=== PATIENT | female | born 1945 | race American Indian/Alaskan Native ===

== ENCOUNTER 2017-03-02 07:22 | Emergency (ER) | payer MEDICARE ==
--- NOTE | 2017-03-02 08:19 | XRay Report ---
PA and lateral chest: Chest pain. Lungs are hypoventilated. No pulmonary infiltrates nor other opacities. The heart is probably normal in size for degree of inspiration although the aorta is somewhat tortuous. No interval change compared to November 09, 2015. Impression: Suboptimal inspiration. No acute findings.
[2017-03-02 08:36] LABS: Basophils % (Auto) 0.3 % (0.0-1.8); Eosinophils % (Auto) 3.2 % (0.0-4.3); Hematocrit 31.6 % (30.3-42.9); Hemoglobin 10.2 gm/dl (10.1-14.3); Mean Corpuscular HGB Conc 32 % (30-34); Mean Corpuscular Volume 74 fl (79-97); Platelet Count 231 K/mm3 (140-440); Red Blood Count 4.27 M/mm3 (3.65-5.03); Red Cell Distribution Width 16.2 % (13.2-15.2); White Blood Count 9.2 K/mm3 (4.5-11.0)
[2017-03-02 08:38] LABS: Mean Corpuscular Hemoglobin 24 pg (28-32)
[2017-03-02 09:00] LABS: Anion Gap 15 mmol/L; BUN/Creatinine Ratio 11; Blood Urea Nitrogen 8 mg/dL (7-17); Calcium 8.6 mg/dL (8.4-10.2); Carbon Dioxide 27 mmol/L (22-30); Chloride 108.3 mmol/L (98-107); Glucose 114 mg/dL (65-100); Sodium 146 mmol/L (137-145)
[2017-03-02] MEDS ORDERED: TYLENOL PO ONE (16:02)
[2017-03-02] MEDS ORDERED: ATROVENT IH ONE (16:03)
[2017-03-02] MEDS ORDERED: PROVENTIL IH ONE (16:03)
--- NOTE | 2017-03-02 16:03 | Emergency Department Report ---
ED Chest Pain HPI - General Chief Complaint: Chest Pain Stated Complaint: PALLAVI Time Seen by Provider: 03/02/17 15:51 Source: patient, RN notes reviewed, old records reviewed Mode of arrival: Ambulatory Limitations: No Limitations - History of Present Illness Initial Comments: This is a 71-year-old female. She is previously unknown to this provider. Has a past medical history of hypertension, diabetes, COPD, obstructive sleep apnea , reports noncompliance with CPAP machine. She presents to the ER with a complaint of cough, wheezing, shortness of breath. This has been going on since last week. She reports that she was seen at another hospital, and prescribed antibiotics; she cannot recall the name of the antibiotic. She describes tinnitus and change in auditory acuity. There is no vertigo. She does admit to mild right-sided ear discomfort. She endorses compliance with antibiotics. There is no leg pain or leg swelling, no recent trips greater than 4 hours, and no recent hospital admissions. Patient endorses that the symptoms have been going on for almost a week. The patient further endorses that approximately 4-5 days ago, she began to have left -sided chest wall pain. It is directly inferior to the breast. The pain does not radiates to the back, arms and neck, there is no vomiting or diaphoresis. There is chronic shortness of breath which is not new, worsening or different. MD Complaint: chest pain -: Gradual Onset: during rest Pain Location: left chest Pain Radiation: none Severity: moderate Quality: aching Consistency: intermittent Improves With: nothing Worsens With: nothing Context: recent illness Other Symptoms: cough Aspirin use within the Past 7 Days: (0) No - Related Data On Oral Contraceptives: No Previous Rx's Medication Instructions Recorded Last Taken Type Albuterol Sulfate [Albuterol 0.63% 0.63 mg IH TID PRN #1 ml 11/13/15 Unknown Rx NEBS] Azithromycin [Zithromax TAB] 500 mg PO QDAY #2 tablet 11/13/15 Unknown Rx Losartan [Cozaar] 25 mg PO QDAY #30 tablet 11/13/15 Unknown Rx Metoprolol [Lopressor TAB] 25 mg PO DAILY #30 tablet 11/13/15 Unknown Rx Tiotropium [Spiriva] 18 mcg IH QDAY #1 box 11/13/15 Unknown Rx Acetaminophen [Tylenol Arthritis] 650 mg PO Q6HR PRN #30 tablet.er 03/02/17 Unknown Rx Albuterol Sulfate [Proair 90 mcg IH Q4HR PRN #2 aer.pow.ba 03/02/17 Unknown Rx Respiclick] Fluticasone [Flonase] 1 spray NS QDAY #1 bottle 03/02/17 Unknown Rx Allergies Allergy/AdvReac Type Severity Reaction Status Date / Time aspirin AdvReac Rash Verified 11/09/15 14:57 iodine AdvReac Swelling Verified 11/09/15 14:57 shellfish derived AdvReac Swelling Verified 11/09/15 14:57 Sulfa (Sulfonamide AdvReac Swelling Verified 11/09/15 14:57 Antibiotics) Heart Score - HEART Score History: Slightly suspicious EKG: Normal Age: > 65 Risk factors: 1-2 risk factors Troponin: < normal limit HEART Score: 3 - Critical Actions Critical Actions: 0-3 pts:0.9-1.7%risk of adverse cardiac event.Candidate for discharge ED Review of Systems ROS: Stated complaint: PALLAVI Other details as noted in HPI Constitutional: denies: diaphoresis, fever, malaise Eyes: denies: vision change ENT: ear pain, throat pain, congestion Respiratory: cough, shortness of breath, wheezing Cardiovascular: chest pain Gastrointestinal: denies: abdominal pain Genitourinary: denies: dysuria Musculoskeletal: arthralgia, myalgia Skin: denies: rash Neurological: denies: weakness ED Past Medical Hx - Past Medical History Hx Hypertension: Yes Hx Diabetes: Yes Hx Arthritis: Yes Hx Asthma: Yes Hx COPD: Yes Hx HIV: No Additional medical history: diverticulitis. high cholesterol. sleep apnea. enlarged heart - Surgical History Hx Appendectomy: Yes Additional Surgical History: hysterectomy. left knee surgery. right eye surgery - Social History Smoking Status: Never Smoker Substance Use Type: None - Medications Home Medications: Home Medications Medication Instructions Recorded Confirmed Last Taken Type Albuterol Sulfate [Albuterol 0.63% 0.63 mg IH TID PRN #1 ml 11/13/15 Unknown Rx NEBS] Azithromycin [Zithromax TAB] 500 mg PO QDAY #2 tablet 11/13/15 Unknown Rx Losartan [Cozaar] 25 mg PO QDAY #30 tablet 11/13/15 Unknown Rx Metoprolol [Lopressor TAB] 25 mg PO DAILY #30 tablet 11/13/15 Unknown Rx Tiotropium [Spiriva] 18 mcg IH QDAY #1 box 11/13/15 Unknown Rx Acetaminophen [Tylenol Arthritis] 650 mg PO Q6HR PRN #30 tablet.er 03/02/17 Unknown Rx Albuterol Sulfate [Proair 90 mcg IH Q4HR PRN #2 aer.pow.ba 03/02/17 Unknown Rx Respiclick] Fluticasone [Flonase] 1 spray NS QDAY #1 bottle 03/02/17 Unknown Rx ED Physical Exam - General Limitations: No Limitations General appearance: alert, in no apparent distress - Head Head exam: Present: atraumatic, normocephalic - Eye Eye exam: Present: normal appearance, EOMI. Absent: nystagmus Pupils: Absent: unequal - ENT ENT exam: Present: normal exam, normal orophraynx, mucous membranes moist, TM's normal bilaterally (there is no tympanic membrane erythema or bulging. There is no mastoid tenderness), normal external ear exam, other (the patient is speaking in full sentences. There is no stridor or dysphonia.) - Neck Neck exam: Present: normal inspection, full ROM. Absent: tenderness, meningismus - Respiratory Respiratory exam: Present: normal lung sounds bilaterally, other (when the patient is examined, she closes her mouth, and has some transmitted upper airway sounds. However, when she opens her mouth widely, there is no wheezing, rales or rhonchi.). Absent: respiratory distress, wheezes, rales, rhonchi, stridor, chest wall tenderness, accessory muscle use, decreased breath sounds, prolonged expiratory - Cardiovascular Cardiovascular Exam: Present: regular rate, normal rhythm, normal heart sounds. Absent: bradycardia, tachycardia, irregular rhythm, systolic murmur, diastolic murmur, rubs, gallop - GI/Abdominal GI/Abdominal exam: Present: soft, normal bowel sounds. Absent: distended, tenderness, guarding, rebound, rigid, pulsatile mass - Extremities Exam Extremities exam: Present: normal inspection, full ROM, normal capillary refill. Absent: pedal edema, joint swelling, calf tenderness - Back Exam Back exam: Present: normal inspection, full ROM. Absent: tenderness, CVA tenderness (R), CVA tenderness (L), muscle spasm, paraspinal tenderness, vertebral tenderness - Neurological Exam Neurological exam: Present: alert, oriented X3, normal gait, other (Extraocular movements intact. Tongue midline. No facial droop. Facial sensation intact to light touch in the V1, V2, V3 distribution bilaterally. 5 and 5 strength in 4 extremities.. Sensation is intact to light touch in 4 extremities.). Absent : motor sensory deficit - Psychiatric Psychiatric exam: Present: anxious - Skin Skin exam: Present: warm, dry, intact, normal color. Absent: rash ED Course Vital Signs 03/02/17 03/02/17 03/02/17 07:31 15:36 16:01 Temperature 98 F 98.1 F Pulse Rate 64 Pulse Rate [ Bilateral] Respiratory 22 16 Rate Respiratory Rate [Bilateral ] Blood Pressure 172/87 O2 Sat by Pulse 97 95 98 Oximetry 03/02/17 03/02/17 03/02/17 16:15 16:30 16:45 Temperature Pulse Rate 57 L 58 L 66 Pulse Rate [ Bilateral] Respiratory 20 19 18 Rate Respiratory Rate [Bilateral ] Blood Pressure 194/87 180/82 180/82 O2 Sat by Pulse 95 94 92 Oximetry 03/02/17 03/02/17 03/02/17 17:01 17:02 17:22 Temperature Pulse Rate 58 L Pulse Rate [ 86 88 Bilateral] Respiratory 19 Rate Respiratory 16 16 Rate [Bilateral ] Blood Pressure 180/82 O2 Sat by Pulse 94 Oximetry - Reevaluation(s) Reevaluation #1: 03/02/17 19:48 Patient has been resting comfortably in the department for hours, no respiratory distress is noted, no hypoxia is noted. CT scan of the chest negative for pulmonary embolus, effusions noted, does not appear to be especially symptomatic. She can follow up with her outpatient massotherapist or outpatient cardiology for this. Right-sided pulmonary nodules noted, this has nonspecific significance. She will be instructed to follow up either her primary care doctor or massotherapist for the following a period the patient is specifically instructed that she needs to follow-up to exclude neoplasm. Reevaluation #2: 03/02/17 19:54 patient aware of nodule she is given copy of ct scan encouraged to follow up with Dr Kelly DOWELL score - Brayan Score Age > 65: (1) Yes Aspirin use within the Past 7 Days: (0) No 3 or more CAD Risk Factors: (0) No 2 or more Angina events in past 24 hrs: (0) No Known CAD with more than 50% Stenosis: (0) No Elevated Cardiac Markers: (0) No ST Deviation Greater than 0.5mm: (0) No BRAYAN Score: 1 ED Medical Decision Making - Lab Data Result diagrams: 03/02/17 07:48 03/02/17 07:48 Vital Signs 03/02/17 03/02/17 03/02/17 07:31 15:36 16:01 Temperature 98 F Pulse Rate 64 Pulse Rate [ Bilateral] Respiratory 22 16 Rate Respiratory Rate [Bilateral ] Blood Pressure 172/87 O2 Sat by Pulse 97 95 98 Oximetry 03/02/17 03/02/17 03/02/17 16:15 16:30 16:45 Temperature Pulse Rate 57 L 58 L 66 Pulse Rate [ Bilateral] Respiratory 20 19 18 Rate Respiratory Rate [Bilateral ] Blood Pressure 194/87 180/82 180/82 O2 Sat by Pulse 95 94 92 Oximetry 03/02/17 03/02/17 03/02/17 17:01 17:02 17:22 Temperature Pulse Rate 58 L Pulse Rate [ 86 88 Bilateral] Respiratory 19 Rate Respiratory 16 16 Rate [Bilateral ] Blood Pressure 180/82 O2 Sat by Pulse 94 Oximetry Lab Results 03/02/17 03/02/17 03/02/17 Range/Units 07:48 07:48 10:37 WBC 9.2 (4.5-11.0) K/mm3 RBC 4.27 (3.65-5.03) M/mm3 Hgb 10.2 (10.1-14.3) gm/dl Hct 31.6 (30.3-42.9) % MCV 74 L (79-97) fl MCH 24 L (28-32) pg MCHC 32 (30-34) % RDW 16.2 H (13.2-15.2) % Plt Count 231 (140-440) K/mm3 Lymph % (Auto) 20.3 (13.4-35.0) % Wythe % (Auto) 9.6 H (0.0-7.3) % Eos % (Auto) 3.2 (0.0-4.3) % Baso % (Auto) 0.3 (0.0-1.8) % Lymph # 1.9 (1.2-5.4) K/mm3 Wythe # 0.9 H (0.0-0.8) K/mm3 Eos # 0.3 (0.0-0.4) K/mm3 Baso # 0.0 (0.0-0.1) K/mm3 Seg Neutrophils % 66.6 (40.0-70.0) % Seg Neutrophils # 6.1 (1.8-7.7) K/mm3 Sodium 146 H (137-145) mmol/L Potassium 4.0 (3.6-5.0) mmol/L Chloride 108.3 H (98-107) mmol/L Carbon Dioxide 27 (22-30) mmol/L Anion Gap 15 mmol/L BUN 8 (7-17) mg/dL Creatinine 0.7 (0.7-1.2) mg/dL Estimated GFR > 60 ml/min BUN/Creatinine Ratio 11 % Glucose 114 H (65-100) mg/dL POC Glucose (70-105) Calcium 8.6 (8.4-10.2) mg/dL Troponin T < 0.010 < 0.010 (0.00-0.029) ng/mL 03/02/17 03/02/17 Range/Units 13:09 15:37 WBC (4.5-11.0) K/mm3 RBC (3.65-5.03) M/mm3 Hgb (10.1-14.3) gm/dl Hct (30.3-42.9) % MCV (79-97) fl MCH (28-32) pg MCHC (30-34) % RDW (13.2-15.2) % Plt Count (140-440) K/mm3 Lymph % (Auto) (13.4-35.0) % Wy[place] % (Auto) (0.0-7.3) % Eos % (Auto) (0.0-4.3) % Baso % (Auto) (0.0-1.8) % Lymph # (1.2-5.4) K/mm3 Wy[place] # (0.0-0.8) K/mm3 Eos # (0.0-0.4) K/mm3 Baso # (0.0-0.1) K/mm3 Seg Neutrophils % (40.0-70.0) % Seg Neutrophils # (1.8-7.7) K/mm3 Sodium (137-145) mmol/L Potassium (3.6-5.0) mmol/L Chloride (98-107) mmol/L Carbon Dioxide (22-30) mmol/L Anion Gap mmol/L BUN (7-17) mg/dL Creatinine (0.7-1.2) mg/dL Estimated GFR ml/min BUN/Creatinine Ratio % Glucose (65-100) mg/dL POC Glucose 102 (70-105) Calcium (8.4-10.2) mg/dL Troponin T < 0.010 (0.00-0.029) ng/mL - EKG Data -: EKG Interpreted by Me - EKG Data 03/02/17 18:09 EKG #1 demonstrates sinus bradycardia, 60 bpm, normal intervals, normal axis, single premature ventricular contraction, not morphologically consistent with STEMI. EKG 2 unremarkable, unchanged, premature ventricular contraction noted, not morphologically consistent with STEMI. - Radiology Data Radiology results: report reviewed, image reviewed - Medical Decision Making Differential diagnosis: Acute coronary syndrome, pulmonary embolus, pneumonia, pulmonary hypertension, chronic shortness of breath, costochondritis Assessment and plan: 71-year-old female with cough, reported wheezing, chronic shortness of breath. No pulmonary embolus or DVT risk factors, low risk by well 's criteria, low risk by BRAYAN score, low risk by heart Square. Patient is not wheezing on my exam, she is saturating well. Chest pain quite atypical, and is present for almost a week. Troponin negative 3, EKG unremarkable 2, patient has been in the ER for over 12 hours without clinical decompensation. Given that patient has been having symptoms for almost a week, and that her objective exam and findings are unremarkable, I do not believe the patient requires admission to the hospital at this time. She is instructed to remain compliant with her CPAP therapy, and follow up with outpatient pulmonology. She is instructed to follow up with an outpatient graduate engineer. Return precautions are reviewed. Critical care attestation.: If time is entered above; I have spent that time in minutes in the direct care of this critically ill patient, excluding procedure time. ED Disposition Clinical Impression: Pain, chest wall, History of COPD Disposition: TO HOME OR SELFCARE Is pt being admited?: No Does the pt Need Aspirin: No Condition: Stable Instructions: Chest Pain (ED) Additional Instructions: Continue outpatient medications. Follow up with any of the listed note specialist within the next 3-5 days. Follow up with her primary care doctor or psychological operations specialist within the next 10-14 days. Return to the ER right away with new pain, worsened pain, migration of pain, fevers, chills, confusion, intractable nausea or vomiting, inability to tolerate liquid feeds. CT scan of the chest did not demonstrate blood clot in the lung, however there is a nonspecific nodule noted in the right middle lobe of the lung. This should be followed up by your primary care doctor or by her psychological operations specialist within the next 6 weeks. Not following up as recommended may result in undiagnosed tumor/cancer/malignancy. Prescriptions: Acetaminophen [Tylenol Arthritis] 650 mg PO Q6HR PRN #30 tablet.er PRN Reason: Pain Albuterol Sulfate [Proair Respiclick] 90 mcg IH Q4HR PRN #2 aer.pow.ba PRN Reason: Wheezing Fluticasone [Flonase] 1 spray NS QDAY #1 bottle Referrals: PRIMARY CAREMD [Primary Care Provider] - 3-5 Days BERNADETTE SOTELO MD [Staff Physician] - 3-5 Days [facility] [Provider Group] - 3-5 Days [facility] [Provider Group] - 3-5 Days
--- NOTE | 2017-03-02 19:42 | Cat Scan Report ---
FINAL REPORT EXAM: CT ANGIO CHEST HISTORY: cp sob TECHNIQUE: Serial axial images through the chest during intravenous administration of 100 milliliters Omnipaque 350 contrast with coronal, sagittal and oblique reconstruction PRIORS: None. FINDINGS: There are moderate size bilateral pleural effusions. There is atelectasis in the dependent portion of the lungs. There is a 6.4 millimeter nodule in the lateral aspect of right middle lobe. There are prominent lymph nodes in the anterior mediastinum and subcarinal kade station. The heart measures approximately 13.8 centimeters in length. 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 No abnormal filling defects are identified in the pulmonary arteries. The aorta is normal in caliber. No aortic dissection is seen. There is a hypodense focus in the right lobe of the liver which is too small to definitely characterize. There are degenerative changes in the spine. IMPRESSION: 1. Moderate-sized bilateral pleural effusion. 2. No definite acute pulmonary embolism is identified. 3. There is a 6.4 millimeter nodule in the right middle lobe. There are currently no studies available for direct comparison. Neoplastic process is not excluded. A follow-up study can be performed 6 months to assess for stability. 4. Prominent mediastinal lymph nodes are noted. These may be reactive. Neoplastic process is not excluded. This can also be reassessed at follow-up. PET-CT could also be performed for further evaluation. 5. There is a hypodense focus in the right lobe of the liver which is too small to definitely characterize.
[2017-03-02 20:11] VITALS: BP 167/86
== END 2017-03-02 20:11 | disposition home or self-care (01) ==
LOC: ED 07:22
DX: R07.89 Other chest pain (principal); J44.9 Chronic obstructive pulmonary disease, unspecified; I10 Essential (primary) hypertension; E11.9 Type 2 diabetes mellitus without complications; M19.90 Unspecified osteoarthritis, unspecified site; E78.00 Pure hypercholesterolemia, unspecified; Z88.2 Allergy status to sulfonamides; Z88.8 Allergy status to other drugs, medicaments and biological substances; Z88.6 Allergy status to analgesic agent; Z91.013 Allergy to seafood
CPT/HCPCS: 36415; 71020; 71275; 80048; 82962; 84484; 85025; 93005; 93010; 94640; 99285; Q9967

== ENCOUNTER 2020-03-08 09:24 | Outpatient (CLI) | payer MEDICARE, OTHER | END 2020-03-08 09:25 | disposition home or self-care (01) | LOC: LABHHL 09:24 | PROVIDERS: ATTEND Surgery | DX: N60.02 Solitary cyst of left breast (principal) | CPT/HCPCS: 88112 ==

== ENCOUNTER 2020-07-26 09:31 | Outpatient (CLI) | payer MEDICARE ==
--- NOTE | 2020-07-26 12:06 | Mammography Report ---
DIGITAL DIAGNOSTIC MAMMOGRAM WITH CAD CONVENTIONAL, 07/26/2020 CLINICAL INFORMATION / INDICATION: Patient is status post biopsy in her positions office on 07/26/2020 TECHNIQUE: Digital mammographic imaging was performed. This examination was interpreted with the benefit of Computer-aided Detection analysis. COMPARISON: 03/05/2020 FINDINGS: Breast Density: The breasts are extremely dense, which lowers the sensitivity of mammography. Biopsy marking clip is noted in the medial right breast at the 3:00 position. IMPRESSION: Biopsy marking clip is noted in the 3:00 position of the right breast. There is no other significant change Follow up recommendation: Correlation with pathology results from biopsy. Post biopsy imaging. A "normal" or negative report should not discourage follow up or biopsy of a clinically significant f inding. A written summary of these findings will be mailed to the patient. The patient will be entered into a mammography reporting system which will generate a reminder letter for the patient's next appointmen t at the appropriate interval. According to the [employer], yearly mammograms are recommended starting at age 40 and continuing as long as a woman is in good health. Breast MRI is recommended for women with an jasmin roximately 20-25% or greater lifetime risk of breast cancer, including women with a strong family his tory of breast or ovarian cancer and women who have been treated for Hodgkin's disease. Signer Name: Wild Carr MD Signed: 07/26/2020 12:01 PM Workstation Name: [id number]
== END 2020-07-26 09:32 | disposition home or self-care (01) ==
LOC: SPVWC 09:31
PROVIDERS: ATTEND Surgery
DX: R92.2 Inconclusive mammogram (principal)

== ENCOUNTER 2020-07-26 15:50 | Outpatient (CLI) | payer MEDICARE | END 2020-07-26 15:51 | disposition home or self-care (01) | LOC: LABHHL 15:50 | PROVIDERS: ATTEND Surgery | DX: N63.12 Unspecified lump in the right breast, upper inner quadrant (principal) | CPT/HCPCS: 88305 ==

== ENCOUNTER 2020-11-27 12:01 | Outpatient (CLI) | payer MEDICARE ==
--- NOTE | 2020-11-27 14:29 | Ultrasound Report ---
ULTRASOUND BREAST BILATERAL LIMITED, 11/27/2020 CLINICAL INFORMATION / INDICATION: MAMMARY DYSPLASIA OF RIGHT BREAST N60.81. Patient presents for fur ther evaluation of sonographic findings in both breasts seen on ultrasound performed in her doctor's office. TECHNIQUE: Targeted ultrasound evaluation was performed of the area of interest. COMPARISON: Prior mammogram 03/05/2020 and 07/26/2020 FINDINGS: Right breast: Limited breast ultrasound was performed of the upper inner quadrant of the right breast . There is a 6 mm hypoechoic nodule in the 2:00 position located 3 cm from the nipple which appears t o correspond with site of prior benign right breast biopsy. Otherwise, no suspicious cystic or solid lesion identified. Left breast: Targeted ultrasound was performed of the upper outer quadrant of the left breast. There is a lobulated hypoechoic mass in the 1:00 position located 5 cm from the nipple measuring up to 1.9 x 1.7 x 1.0 cm. The mass is parallel. No internal vascularity is demonstrated. There are several inci dental benign cysts, the largest in the 12:00 subareolar position measuring up to 1.3 cm. IMPRESSION: 1. An incidental lobulated hypoechoic mass in the 1:00 left breast is considered probably benign. Rec ommend left breast ultrasound in 6 months to ensure stability. 2. Additional benign findings in both breasts as above. Follow up recommendation: Short term follow up in 6 months. BI-RADS Category 3: Probably Benign. Followup in 6 months. A normal or "negative" report should not preclude biopsy or follow-up of a clinically suspicious find ing. Signer Name: Yu Chen MD Signed: 11/27/2020 2:25 PM Workstation Name: [id number]
== END 2020-11-27 12:02 | disposition home or self-care (01) ==
LOC: SPVWC 12:01
PROVIDERS: ATTEND Surgery
DX: N63.12 Unspecified lump in the right breast, upper inner quadrant (principal); N63.21 Unspecified lump in the left breast, upper outer quadrant; N60.81 Other benign mammary dysplasias of right breast

== ENCOUNTER 2021-03-06 10:54 | Outpatient (CLI) | payer MEDICARE ==
--- NOTE | 2021-03-06 17:11 | Mammography Report ---
DIGITAL SCREENING MAMMOGRAM WITH CAD, 03/06/2021 CLINICAL INFORMATION / INDICATION: Routine screening mammography. SCREENING MAMMO TECHNIQUE: Digital bilateral 2D mammography was obtained in the craniocaudal and mediolateral obliqu e projections. This examination was interpreted with the benefit of Computer-Aided Detection analysis . , 03/05/2020 COMPARISON: 02/14/2018 FINDINGS: Breast Density: The breasts are heterogeneously dense, which may obscure small masses. No dominant mass, suspicious calcifications, or architectural distortion in either breast. There are stable calcifications bilaterally Biopsy marking clips are noted bilaterally. IMPRESSION: No mammographic evidence of malignancy. Follow up recommendation: Routine yearly. The patient will be due for a follow-up left breast ultraso und in May (See ultrasound report from 11/27/2020). BI-RADS Category 2: Benign. A "normal" or negative report should not discourage follow up or biopsy of a clinically significant f inding. A written summary of these findings will be mailed to the patient. The patient will be entered into a mammography reporting system which will generate a reminder letter for the patient's next appointmen t at the appropriate interval. The [employer] recommends yearly mammograms starting at age 40 and continuing as l natasha as a woman is in good health. Breast MRI is recommended for women with an approximate 20-25% or greater lifetime risk of breast cancer, including women with a strong family history of breast or ova hodan cancer or who have been treated for Hodgkin's disease. Signer Name: Wild Carr MD Signed: 03/06/2021 5:07 PM Workstation Name: [id number]
== END 2021-03-06 10:55 | disposition home or self-care (01) ==
LOC: SPVWC 10:54
PROVIDERS: ATTEND Internal Medicine
DX: Z12.31 Encounter for screening mammogram for malignant neoplasm of breast (principal); N64.89 Other specified disorders of breast
CPT/HCPCS: 77067